=== PATIENT | male | born 1940 | race Hispanic/Latino ===

== ENCOUNTER 2021-03-01 06:19 | Day surgery (SDC) | payer MEDICARE ==
[2021-03-01 07:40] LABS: Basophils % (Auto) 0.6 % (0.0-1.8); Eosinophils # (Auto) 0.1 K/mm3 (0.0-0.4); Eosinophils % (Auto) 1.5 % (0.0-4.3); Hemoglobin 15.1 gm/dl (11.8-15.2); Mean Corpuscular HGB Conc 34 % (32-34); Mean Corpuscular Volume 92 fl (84-94); Monocytes # (Auto) 0.4 K/mm3 (0.0-0.8); Monocytes % (Auto) 7.8 % (0.0-7.3); Platelet Count 148 K/mm3 (140-440); Red Blood Count 4.91 M/mm3 (3.65-5.03); Red Cell Distribution Width 13.7 % (13.2-15.2)
[2021-03-01 07:50] LABS: INR 0.94 (0.87-1.13)
[2021-03-01 07:52] LABS: BUN/Creatinine Ratio 18; Blood Urea Nitrogen 14 mg/dL (9-20); Calcium 9.1 mg/dL (8.4-10.2); Hemolysis Index 18
[2021-03-01] MEDS ORDERED: ASPIRIN EC 325 MG TAB PO SCH (08:00)
[2021-03-01] MEDS: MIDAZOLAM 2 MG/2 ML INJ ONE ×2 (08:29→09:35)
[2021-03-01] MEDS: fentaNYL 100 MCG/2 ML INJ ONE ×2 (08:29→09:35)
[2021-03-01] MEDS: VERAPAMIL 5 MG/2 ML INJ ONE ×2 (08:30→09:40)
[2021-03-01] MEDS: LIDOCAINE (2%) 20 MG/1 ML VIAL 20 ML MDV INFILTRATI ONE ×2 (08:30→09:39)
[2021-03-01] MEDS: HEPARIN 10,000 UNITS/10 ML VIAL ONE ×2 (08:31→09:40)
[2021-03-01] MEDS: HEPARIN/NS 5000 UNIT/500ML 1,000 ML IR ONE ×2 (08:31→09:35)
[2021-03-01] MEDS: SODIUM CHLORIDE 0.9% 500 ML 500 ML IV SCH ×2 (08:40→09:35)
[2021-03-01] MEDS ORDERED: ATROPINE 0.1% (1 MG/10 ML) CARDIAC SYRINGE ONE (09:32)
--- NOTE | 2021-03-01 10:44 | Cardiac Catherization Report ---
DATE OF SERVICE: 03/01/2021 INDICATIONS: The patient is a 80-year-old [place] gentleman was noted to have carotid disease under the preoperative workup. The patient underwent a stress nuclear testing in [place], [place] and it was found to be abnormal showing inferolateral ischemia. Also, an echocardiogram was performed, which showed ejection fraction to be around 60% with grade I diastolic dysfunction. Because of abnormal stress nuclear imaging, the patient was advised to have a cardiac catheterization done for definitive diagnosis and treatment. Stress nuclear imaging showed moderately reduced perfusion defect of moderate to large size in the inferolateral wall. However, the patient is not very active. Denies any significant symptoms of chest pain. The patient was explained of the procedure, potential complications, and alternatives of therapy available. The patient is willing to proceed with coronary angiography. DESCRIPTION OF PROCEDURE: The patient was evaluated for moderate sedation and was felt to be an appropriate candidate for moderate sedation and received IV Versed and fentanyl. Subsequently, the patient was prepared in standard fashion and local anesthesia was given in the right wrist area. Right radial artery access was obtained using 21-gauge arterial puncture needle. A 5-Sudanese slender sheath was introduced. A 6-Sudanese multipurpose catheter was used to obtain the angiograms of the left ventricle done in YANES projection and angiograms of the left coronary artery in multiple views. Subsequently, JR4 catheter was used to obtain the angiograms of the right coronary artery. At the end of the procedure, catheter was removed over the wire. Throughout the procedure, the patient was monitored for any side effects from moderate sedation with a pulse oximetry and EKG monitoring and hemodynamic monitoring. The patient tolerated the procedure well. At the end of the procedure, the patient is communicating normally, moving all the extremities with no focal deficits and breathing normally. The patient's moderate sedation started at 9:29 a.m. and ended at 9:55 a.m. The patient was transferred to the room in stable condition. Hemostasis will be achieved with application of radial band. Following findings were noted. HEMODYNAMICS: 1. Opening aortic pressure 166/63. Left ventricular pressure 166/24. No gradient across the aortic valve. Estimated ejection fraction 55%. 2. Left ventriculogram done in YANES projection using hand injection showed normal-sized left ventricle with normal contractility. Mitral regurgitation could not be evaluated because of limited amount of dye. 3. Right coronary artery nondominant vessel arising normally from right coronary cusp. This is occluded in the mid part and filling faintly with intra-arterial collaterals. 4. Left coronary artery arises normally from left coronary cusp. Mild calcification noted in the proximal LAD area. Left main showed very mild disease distally. LAD shows a focal 70-80% ostial lesion. LAD curves around the apex. LAD and large diagonal branches without significant disease. Circumflex artery, dominant vessel shows smooth 30% lesion in the mid part. Otherwise, rest of the circumflex artery and marginal branches without significant disease. FINAL IMPRESSION: 1. Normal-sized left ventricle with normal contractility with mildly elevated end-diastolic pressure. 2. Severe ostial LAD disease with the rest of the left system showing only mild disease. Nondominant right coronary artery is occluded in the mid part, but has intra-arterial collaterals. Considering the above angiographic pictures and clinical picture with abnormal stress nuclear imaging, would recommend revascularization probably with robotic surgery. In the meantime, we will start him on appropriate medical therapy. The patient is not having any significant symptoms of angina at this point. Findings were explained to the patient. He understands. TID: [id number] RECEIPT: [id number] [facility]/MICHAEL GALLARDO
--- NOTE | 2021-03-01 12:16 | Electrocardiograph Report ---
[facility] Test Date: 2021-03-01 Test Time: 07:33:29 Pat Name: SHASHANK PADGETT Department: Room: Gender: M Engineering Recruiter: KENNY : 1940 Requested By: PRASHANTH AHMADI Order Number: [id number] Reading MD: Prashanth Ahmadi Measurements Intervals [place] Rate: 59 P: 45 PA: 187 QRS: 30 QRSD: 81 T: 54 QT: 410 QTc: 406 Interpretive Statements Sinus rhythm No previous ECG available for comparison Electronically Signed On 03-01-2021 12:16:45 EST by Prashanth Ahmadi
--- NOTE | 2021-03-01 12:30 | Short Stay Summary ---
Short Stay Documentation Date of service: 03/01/21 - History H&P: obtained from office - Allergies and Medications Current Medications: Allergies No Known Allergies Allergy (Verified 03/01/21 07:04) Home Medications Medication Instructions Recorded Confirmed Last Taken Type AtorvaSTATin [Lipitor] 20 mg PO QHS 03/01/21 03/01/21 02/27/21 History Metformin HCl [metFORMIN] 1,000 mg PO BID 03/01/21 03/01/21 02/27/21 History Active Medications Aspirin (Aspirin Ec 325 Mg Tab) 325 mg PO ONCE@0800 MORENITA Stop: 03/01/21 17:00 Last Admin: 03/01/21 08:15 Dose: 325 mg Documented by: Sodium Chloride (Nacl 0.9% 500 Ml) 500 mls @ 50 mls/hr IV DIRECT MORENITA Stop: 03/01/21 17:59 Last Admin: 03/01/21 09:35 Dose: 50 mls/hr Documented by: - Physical exam Integumentary: other (Right radial cath site intact no bleeding or hematoma. Distal PMS intact) - Brief post op/procedure progress note Date of procedure: 03/01/21 Pre-op diagnosis: Abnormal stress test Post-op diagnosis: other (Coronary artery disease) Procedure: Csee cath report Anesthesia: local Estimated blood loss: none Condition: stable - Disposition Condition at discharge: Stable Disposition: 01 HOME / SELF CARE / HOMELESS - Discharge Diagnoses (1) Coronary artery disease Status: Acute Short Stay Discharge Plan Follow up with: JOSTIN AHMADI MD [Staff Physician] - 7 Days Forms: CardCath PCI D/C Instructions
[2021-03-01 12:58] VITALS: BP 172/72
[2021-03-01] MEDS ORDERED: METOPROLOL TARTRATE 25 MG TAB PO SCH (22:00)
== END 2021-03-01 14:30 | disposition home or self-care (01) ==
LOC: CATHLABREC 06:19
PROVIDERS: ATTEND Internal Medicine
DX: I25.10 Atherosclerotic heart disease of native coronary artery without angina pectoris (principal); E78.00 Pure hypercholesterolemia, unspecified; E11.9 Type 2 diabetes mellitus without complications; Z79.899 Other long term (current) drug therapy; Z98.890 Other specified postprocedural states; Z79.84 Long term (current) use of oral hypoglycemic drugs; Z86.39 Personal history of other endocrine, nutritional and metabolic disease
CPT/HCPCS: 36415; 80048; 85025; 85610; 85730; 93005; 93458; 99156; 99157; C1894; J1644; J2250; J3010; J3490; J7040; J0461; Q9967